=== PATIENT | male | born 1945 | race Caucasian/White ===

== ENCOUNTER 2018-10-22 11:17 | Inpatient (IN) | payer MEDICARE, OTHER ==
[~2018-10-22] VITALS: Ht 180.3 cm; Wt 112.0 kg
[2018-10-22 12:06] LABS: Hematocrit 45.9 % (37.0-53.0); Hemoglobin 14.9 g/dL (13.5-17.5); Mean Corpuscular HGB 31.2 pg (26.0-34.0); Mean Corpuscular HGB Conc 32.5 g/dL (31.5-36.5); Mean Corpuscular Volume 96 fL (80-100); Mean Platelet Volume 10.4 fL (9.1-12.4); Platelet Count 248 K/mm3 (150-400); RDW Coefficient Variation 13.3 % (11.7-14.2); RDW Standard Deviation 47.6 fL (35.1-46.3); Red Blood Cell Count 4.78 M/mm3 (4.30-5.90); White Blood Cell Count 10.72 K/mm3 (4.00-11.30)
[2018-10-22 12:29] LABS: International Normalized Ratio 0.95; Prothrombin Time Results 10.1 Sec (9.7-11.5)
[2018-10-22 12:36] LABS: Anion Gap 7 mmol/L (6-16); Blood Urea Nitrogen 21 mg/dL (8-24); Bun/Creatinine Ratio 23.1 (12.0-20.0); CHOL/HDL RATIO 4.7; CO2, Blood 27 mmol/L (21-32); CPK Creatine Kinase 72 U/L (39-308); Calcium, Blood 9.1 mg/dL (8.5-10.1); Chloride, Blood 106 mmol/L (98-108); Cholesterol 238 mg/dL (50-200); Creatine Kinase MB 2.7 ng/mL (0.0-3.6); Creatine Kinase MB Index 3.8 (0.0-4.0); Creatinine, Blood 0.91 mg/dL (0.60-1.20); Glomerular Filtration Rate >60 (60-); Glucose, Blood 161 mg/dL (70-99); HDL Cholesterol 51 mg/dL (>39); LDL/HDL RATIO 2.9; Low Density Lipoprotein Chol 150 mg/dL (0-110); Magnesium, Blood 1.9 mg/dL (1.6-2.4); Potassium, Blood 4.1 mmol/L (3.5-5.5); Sodium, Blood 140 mmol/L (136-145); Triglycerides 187 mg/dL (30-160); Troponin I <0.015 ng/mL (0.000-0.040); Very Low Density Lipoprot Chol 37 mg/dL (6-32)
--- NOTE | 2018-10-22 14:30 | NUR ---
PT TRANSFERRED FROM [facility] TO ICU. RIGHT RADIAL SITE WITH TR BAND IN PLACE. PT DENIES CHEST PAIN BUT ST ELEVATION NOTED. 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 ASSISTED WITH PHONE CALL. PT AMBULATES WELL AND ONLY NEEDS ASSISTANCE WITH LINES WHEN AMBULATING TO TOILET. ONE IV IN PLACE. DISCUSSED WITH WINDER TENDER WHO STATES ONLY ONE NEEDED AT THIS TIME FOR IV FLUIDS SINCE PT WILL LIKELY CHANGE STATUS OR DC TOMORROW. DENIES FURTHER NEEDS OR CONCERNS AT THIS TIME.
--- NOTE | 2018-10-22 16:39 | NUR ---
ATTEMPTED TO REMOVE 2CC OF AIR FROM TR BAND. SITE INSTANTLY STARTED OOZING. REINFUSED 2CC. NO FURTHER BLEEDING NOTED. SITE REMAINS SOFT WITH NO SIGN OF HEMATOMA
--- NOTE | 2018-10-22 18:20 | NUR ---
SHIFT SUMMARY: PT HAS RIGHT TR BAND WITH 4CC REMOVED. ST ELEVATION NOTED ON TELE BUT PT DENIES CHEST PAIN AND HAS BEEN INDEPENDENT TO TOILET. DR CHRISTINE CAME TO SEE PT AND IS AWARE THAT TR BAND HAD TO BE REINFLATED ONCE. ALSO AWARE THAT THERE IS NO LABS ORDERED FOR AM. STATES HE WILL ORDER. NO FURTHER NEEDS OR CONCERNS AT THIS TIME.
--- NOTE | 2018-10-23 06:58 | NUR ---
SHIFT SUMMARY PT RESTING IN ROOM COMFROTABLY AT THIS TIME. NO ACUTE CHANGES IN STATUS T/O NIGHT. PT SLEPT WELL T/O NIGHT. TR BAND WAS FULLY DEFLATED AND REMOVED FROM R RADIAL SITE. SITE WNL, NO BLEEDING AND NO HEMATOMAS NOTED. ARM BOARD IN PLACE. RESP EVEN UNLABRED ON RA W/ SATS >95%. DENIES ANY PAIN, DENIES SOB. PT INDEPENDENT IN ROOM, AND USES CALL LIGHT APROPRIATELY. CALL LIGHT IN REACH.
--- NOTE | 2018-10-23 08:48 | NUR ---
0720: Care assumed, assessment completed. Pt sitting up to bed, denies CP/pressure or SOB, slight ST segment elevation noted on cardiac monitoring. HRR, LS CTA, pt denies pain or discomfort, up to BR independently. PCI access site to right wrist without pain, swelling, bruising, hematoma, or bleeding. Dressing CDI, immobilization arm board in place. VSS. 0815: Echo completed, pt sitting at bedside eating breakfast, denies needs. Pt anxious to be discharged home.
--- NOTE | 2018-10-23 09:35 | NUR ---
DR. CHRISTINE AT BEDSIDE TO SEE PT, PT DENIES SOB OR CP AT THIS TIME.
--- NOTE | 2018-10-23 10:28 | NUR ---
Pt sitting up in chair, vss, no changes noted to right wrist pci access site. Pt denies chest pain/pressure and SOB, is calm and cooperative but anxious to go home. Pt aware that discharge depends on next troponin results, is agreeable. Denies needs.
--- NOTE | 2018-10-23 11:55 | NUR ---
DR. CHRISTINE AWARE OF TROPONIN, STATES HE WILL WRITE DC ORDERS FOR AFTER LUNCH. PT SITTING UP IN CHAIR EATING, DENIES CHEST PAIN/PRESSURE, OR SOB. FATHER KEITH AT BEDSIDE.
[2018-10-23] MEDS ORDERED: ASPI81CH PO (12:53)
[2018-10-23] MEDS ORDERED: ATOR40TA PO (12:53)
[2018-10-23] MEDS ORDERED: CLOP75 PO (12:54)
[2018-10-23] MEDS ORDERED: FAMO20 PO (12:54)
[2018-10-23] MEDS ORDERED: LISI5 PO (12:55)
[2018-10-23] MEDS ORDERED: Lopressor 25 mg25 MG PO (12:55)
--- NOTE | 2018-10-23 13:15 | NUR ---
1230: DR. CHRISTINE AT BEDSIDE TO DISCUSS PLAN OF CARE WITH PATIENT. 1305: PT SITTING IN CHAIR, FINISHED LUNCH WITHOUT DIFFICULTY, VSS AT THIS TIME, DENIES SOB, CHEST PAIN/PRESSURE. RIGHT RADIAL PCI SITE WNL, NO PAIN OR HEMATOMA NOTED, DRESSING CDI, IMMOBILIZATION DEVICE IN PLACE. IV DC'D WITH TIP INTACT, PRESSURE DRESSING APPLIED. PT DRESSED, DC'D TO HOME AT THIS TIME WITH BELONGINGS, [facility], DC INSTRUCTIONS GIVEN TO PT WHO VERBALIZES UNDERSTANDING. GAIT STEADY UPON DISCHARGE, FRIEND TO DRIVE PT HOME.
== END 2018-10-23 13:05 | disposition home or self-care (01) | DRG 247 ==
LOC: ER 11:17 → PCU 11:57 → ICUE 11:57
PROVIDERS: Emergency Medicine; ADMIT Emergency Medicine
PROC: 027034Z Dilation of Coronary Artery, One Artery with Drug-eluting Intraluminal Device, Percutaneous Approach (ICD-10-PCS; principal; 2018-10-23)
PROC: B2161ZZ Fluoroscopy of Right and Left Heart using Low Osmolar Contrast (ICD-10-PCS; 2018-10-23)
PROC: 4A023N7 Measurement of Cardiac Sampling and Pressure, Left Heart, Percutaneous Approach (ICD-10-PCS; 2018-10-23)
DX: I21.11 ST elevation (STEMI) myocardial infarction involving right coronary artery (principal); I45.10 Unspecified right bundle-branch block; I25.10 Atherosclerotic heart disease of native coronary artery without angina pectoris; I10 Essential (primary) hypertension; E78.5 Hyperlipidemia, unspecified; Z79.82 Long term (current) use of aspirin; Z79.02 Long term (current) use of antithrombotics/antiplatelets
CPT/HCPCS: 36415; 71045; 80048; 80061; 82550; 82553; 83735; 84484; 85027; 85347; 85610; 85730; 86850; 86900; 86901; 93005; 93010; 93306; 93458; 96374; 96375; 99152; 99153; 99285-25; C1725; C1769; C1874; C1887; C1894; C9606; J0461; J1644; J2250; J3010; J7030; J7040; J7050; Q9967